=== PATIENT | female | born 1965 | race Caucasian/White ===

== ENCOUNTER 2016-05-09 17:50 | Emergency (ER) | payer OTHER | END 2016-05-09 18:59 | disposition home or self-care (01) | LOC: ER 17:50 | DX: S62.630B Displaced fracture of distal phalanx of right index finger, initial encounter for open fracture (principal); X58.XXXA Exposure to other specified factors, initial encounter; Y92.69 Other specified industrial and construction area as the place of occurrence of the external cause; Y99.0 Civilian activity done for income or pay; Z23 Encounter for immunization; Z88.8 Allergy status to other drugs, medicaments and biological substances | CPT/HCPCS: 90471; 96372 ==